=== PATIENT | male | born 1970 ===

== ENCOUNTER 2018-10-14 05:42 | Emergency (ER) | payer OTHER ==
[2018-10-14] MEDS ORDERED: Ketorolac 30 MG/ML SDV IVPUSH ONE (05:59)
--- NOTE | 2018-10-14 06:22 | EDM.PDOC ---
ED HPI GENERAL MEDICAL PROBLEM - General Chief Complaint: Upper Extremity Injury/Pain Stated Complaint: LEFT SHOULDER PAIN Time Seen by Provider: 10/14/18 05:53 Source of Information: Reports: Patient History Limitations: Reports: No Limitations - History of Present Illness INITIAL COMMENTS - FREE TEXT/NARRATIVE: Pt. presents to ER with complaints of L shoulder pain. 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 He states that he has occasionally taken Aleve 1 tab with little to no improvement. He has continued to work. Denies any obvious falls or trauma to the area. He states that he has never had problems with the shoulder in the past. He has increased pain with straight forward and lateral raise. Denies any posterior pain to the shoulder. Denies any issues with chronic injury of the shoulder, arthritis, or previous dislocation. He reports acute onset of symptoms without obvious trauma to the extremity. Denies any cervical pain. He states that the pain is made worse with movement or manipulation of the joint. Onset Date: 10/14/18 Location: Reports: Upper Extremity, Left Quality: Reports: Ache, Sharp Severity: Moderate Associated Symptoms: Denies: Fever/Chills Left Upper Arm Pain Score (Numeric/FACES): 10 - Related Data Allergies Allergy/AdvReac Type Severity Reaction Status Date / Time No Known Allergies Allergy Verified 10/14/18 05:45 Home Meds: Home Meds Albuterol Sulfate [Proventil Hfa] 1 - 2 puff IH Q4HR PRN 10/14/18 [History] Aspirin [Halfprin] 81 mg PO DAILY 10/14/18 [History] Lisinopril 10 mg PO DAILY 10/14/18 [History] Montelukast [Singulair] 10 mg PO DAILY 10/14/18 [History] Triamcinolone Acetonide [Kenalog 0.1% Crm] 15 gm TOP BID PRN 10/14/18 [History] Past Medical History Cardiovascular History: Reports: Hypertension Respiratory History: Reports: Asthma Social & Family History - Tobacco Use Smoking Status *Q: Current Every Day Smoker Years of Tobacco use: 20 Packs/Tins Daily: 1 Review of Systems - Review of Systems Review Of Systems: See Below Constitutional: Denies: Chills, Fever Musculoskeletal: Reports: Shoulder Pain, Arm Pain (proximal bicep area), Joint Pain (L shoulder) Skin: Reports: No Symptoms Neurological: Reports: No Symptoms ED EXAM, GENERAL - Physical Exam Exam: See Below Exam Limited By: No Limitations General Appearance: Alert, WD/WN, No Apparent Distress Extremities: Normal Inspection, Normal Capillary Refill, Limited Range of Motion , Other (Pt. holding anterior shoulder. Exquisitely tender on palpation of proximal bicep insertion area. Increased pain with any raise of the extremity. No posterior involvement. Denies any pain over deltoid, cervical spine, or distal to the area previously in question. ) Course - Vital Signs Last Recorded V/S: Last Vital Signs Temp 35.4 C 10/14/18 05:45 Pulse 79 10/14/18 05:45 Resp 20 10/14/18 05:45 BP 129/87 10/14/18 05:45 Pulse Ox 96 10/14/18 05:45 - Orders/Labs/Meds Meds: Medications Discontinued Medications Generic Name Dose Route Start Last Admin Trade Name Sary PRN Reason Stop Dose Admin Ketorolac Tromethamine 30 mg 10/14/18 05:59 10/14/18 06:04 Toradol IVPUSH 10/14/18 06:00 30 mg ONETIME ONE Administration Departure - Departure Time of Disposition: 06:25 Disposition: Home, Self-Care 01 Clinical Impression: Biceps tendinitis of left shoulder - Discharge Information Instructions: Biceps Tendon Tendinitis (Proximal) and Tenosynovitis Rehab- [facility], Bicipital Tendinitis Referrals: PCP,None [Primary Care Provider] - Forms: ED Department Discharge Additional Instructions: Naproxen sodium 500mg 1 twice daily as needed for pain. Take on schedule for the next 5 days. Prednisone 40mg One dose daily for the next 5 days. Take this medication until it is gone. Ice painful area for 15 min on/15 min off. If continuing to have pain after 7 days, follow-up with PCP for MRI. - Assessment/Plan Plan: Naproxen sodium 500mg 1 twice daily as needed for pain. Take on schedule for the next 5 days. Prednisone 40mg One dose daily for the next 5 days. Take this medication until it is gone. Ice painful area for 15 min on/15 min off. If continuing to have pain after 7 days, follow-up with PCP for MRI.
== END 2018-10-14 06:20 | disposition home or self-care (01) ==
LOC: VM.ED 05:42
DX: M75.22 Bicipital tendinitis, left shoulder (principal); I10 Essential (primary) hypertension; J45.909 Unspecified asthma, uncomplicated; F17.210 Nicotine dependence, cigarettes, uncomplicated; Z79.82 Long term (current) use of aspirin
CPT/HCPCS: 96372; 99283; J1885